=== PATIENT | female | born 1940 | race African-American/Black ===

== ENCOUNTER → 2016-07-26 | Outpatient (CLI) | payer OTHER ==
[~2016-07-26] MED LIST: AMLO5TAB2 PO; ASPI-496 PO; ATOR40TA78 PO; BENA40TA2 PO; CARV3.1212 PO; CHOL10002 PO; CLOP75TA PO; HYDR25TA6 PO; LEVO75TA5 PO
[2016-07-26 16:44] LABS: ASPARTATE AMINO TRANSFERASE 19 U/L (15-37); BLOOD UREA NITROGEN 24 mg/dL (7-18)
== END | disposition home or self-care (01) ==
LOC: STAR 15:18
PROVIDERS: ATTEND Surgery
DX: Z01.818 Encounter for other preprocedural examination (principal); I65.21 Occlusion and stenosis of right carotid artery
CPT/HCPCS: 36415; 80053; 85025; 93005

== ENCOUNTER → 2018-01-16 | Outpatient (CLI) | payer OTHER ==
[~2018-01-16] MED LIST changes: -AMLO5TAB2 PO; +AMLO5TAB7 PO; -BENA40TA2 PO; +BENA40TA3 PO; +TRAM50TA2 PO
== END | disposition home or self-care (01) ==
LOC: CFH 06:56
PROVIDERS: ATTEND Surgery
DX: I65.22 Occlusion and stenosis of left carotid artery (principal); Z86.73 Personal history of transient ischemic attack (TIA), and cerebral infarction without residual deficits
CPT/HCPCS: 93880